=== PATIENT | female | born 1960 | race Caucasian/White ===

== ENCOUNTER 2021-01-19 17:22 | Inpatient (IN) | payer OTHER ==
[~2021-01-19] VITALS: Ht 170.2 cm; Wt 132.4 kg
[2021-01-19 17:46] LABS: HEMOGLOBIN 15.2 gm/dl (12.3-15.3); RED BLOOD COUNT 5.3 M/UL (4.00-5.10); WHITE BLOOD COUNT 23.9 K/UL (4.5-11.0)
[2021-01-19 18:07] LABS: BUN/CREATININE RATIO 29 (0-10)
[2021-01-19] MEDS ORDERED: LINZESS145 MCG PO (22:21)
[2021-01-19] MEDS ORDERED: MELOXICAM7.5 MG PO (22:22)
[2021-01-20] MEDS ORDERED: ZESTRIL5 MG PO (17:25)
[2021-01-20] MEDS ORDERED: EVISTA 60 MG TA60 MG PO (17:26)
[2021-01-20] MEDS ORDERED: VENTOLIN HFA 66.7 GM INH (17:27)
[2021-01-20] MEDS ORDERED: SYMBICORT 160-1 INHA INH (17:27)
[2021-01-20] MEDS ORDERED: SYNTHROID150 MCG PO (22:20)
[2021-01-20] MEDS ORDERED: CLARITIN10 MG PO (22:20)
[2021-01-20] MEDS ORDERED: HYDROCHLOROTHIA25 MG PO (22:20)
[2021-01-20] MEDS ORDERED: SIMVASTATIN10 MG PO (22:21)
[2021-01-20] MEDS ORDERED: ALENDRONATE SOD70 MG PO (22:21)
[2021-01-21 02:27] LABS: HEMOGLOBIN 11.7 gm/dl (12.3-15.3); RED BLOOD COUNT 4.17 M/UL (4.00-5.10); WHITE BLOOD COUNT 11.5 K/UL (4.5-11.0)
[2021-01-21 02:45] LABS: BUN/CREATININE RATIO 27 (0-10)
--- NOTE | 2021-01-21 16:01 | NUR ---
PT STATES MISSING KNEE BRACE SINCE ADMITTED. HOUSEKEEPING NOTIFIED AND SEARCHED ED, SURGERY, PCU FOR KNEE BRACE AND UNABLE TO FIND. PT NOTIFIED AND CASE MGMT NOTIFIED TO OBTAIN PT. A NEW KNEE BRACE
--- NOTE | 2021-01-23 14:15 | NUR ---
PTS OXYGEN SATURATION IS 87 PERCENT ON ROOM AIR.
== END 2021-01-23 21:58 | disposition home or self-care (01) | DRG 493 ==
LOC: ER1 17:22 → M/S 19:25 → CDU 19:25 → PROG CARE 19:25 → M/S 01-21 04:04
PROVIDERS: Emergency Medicine; Orthopaedic Surgery; ADMIT Surgery
PROC: 0PSF04Z Reposition Right Humeral Shaft with Internal Fixation Device, Open Approach (ICD-10-PCS; principal; 2021-01-20 09:12)
DX: S42.351A Displaced comminuted fracture of shaft of humerus, right arm, initial encounter for closed fracture (principal); E87.2 Acidosis; Z68.42 Body mass index [BMI] 45.0-49.9, adult; I10 Essential (primary) hypertension; J45.909 Unspecified asthma, uncomplicated; E66.01 Morbid (severe) obesity due to excess calories; K57.90 Diverticulosis of intestine, part unspecified, without perforation or abscess without bleeding; E03.9 Hypothyroidism, unspecified; E11.9 Type 2 diabetes mellitus without complications; V23.4XXA Motorcycle driver injured in collision with car, pick-up truck or van in traffic accident, initial encounter; W22.10XA Striking against or struck by unspecified automobile airbag, initial encounter; Y93.89 Activity, other specified; Z79.4 Long term (current) use of insulin; Z90.710 Acquired absence of both cervix and uterus; Z90.89 Acquired absence of other organs; Z88.2 Allergy status to sulfonamides; Z91.040 Latex allergy status
CPT/HCPCS: 29105; 36415; 71045; 71260; 72040; 72125; 72170; 73060; 73110; 73564; 73620; 76000; 80048; 80053; 81001; 82962; 83605; 85025; 85610; 85730; 86850; 86900; 86901; 90471; 90715; 94640; 94664; 94760; 96372; 96374; 96375; 96376; 97116-GP-CQ; 97162; 97166; 97530; 97530-GP-CQ; 99284; A6212; C1713; G0378; G0480; J0171; J0690; J1100; J1170; J1650; J1885; J2001; J2250; J2270; J2405; J2704; J2710; J2795; J3010; J7030; J7120; Q9967; U0002